=== PATIENT | male | born 1975 | race American Indian/Alaskan Native ===

== ENCOUNTER 2018-01-10 07:33 | Emergency (ER) | payer SELFPAY ==
--- NOTE | 2018-01-10 08:59 | XRay Report ---
FINAL REPORT EXAM: XR SHOULDER 2+V LT HISTORY: pain, decreased ROM TECHNIQUE: Three views of the left shoulder PRIORS: None. FINDINGS: There is no evidence of acute fracture. There is no evidence of joint dislocation. There is no significant focal osseous lesions seen. IMPRESSION: There is no acute abnormality identified.
--- NOTE | 2018-01-10 09:42 | Emergency Department Report ---
ED Upper Extremity Inj HPI - General Chief Complaint: Shoulder Injury Stated Complaint: PAIN LT ARM/SHOULDER Time Seen by Provider: 01/10/18 09:07 Source: patient Mode of arrival: Ambulatory Limitations: No Limitations - History of Present Illness Complaint: Injury to:: left -: Sudden, days(s) (8) Other Extremity Injury: Shoulder: Left Other Injuries: none Handedness: right Place: home (may have occurred at work or at home is unsure whether the initial injury that took place has been experiencing sharp burning shoulder pain with various range of motion since he lifted a heavy object at work AND started that working out at home) - Related Data Previous Rx's Medication Instructions Recorded Last Taken Type Ketorolac [Toradol] 10 mg PO Q6H PRN #14 tablet 01/10/18 Unknown Rx Methocarbamol [Robaxin-750] 750 mg PO TID #20 tablet 01/10/18 Unknown Rx Allergies Allergy/AdvReac Type Severity Reaction Status Date / Time No Known Allergies Allergy Unverified 01/10/18 07:47 ED Review of Systems ROS: Stated complaint: PAIN LT ARM/SHOULDER Other details as noted in HPI Constitutional: denies: chills, fever Eyes: denies: eye pain, eye discharge, vision change ENT: denies: ear pain, throat pain Respiratory: denies: cough, shortness of breath, wheezing Cardiovascular: denies: chest pain, palpitations Endocrine: no symptoms reported Gastrointestinal: denies: abdominal pain, nausea, diarrhea Genitourinary: denies: urgency, dysuria Musculoskeletal: denies: back pain, joint swelling, arthralgia Skin: denies: rash, lesions Neurological: denies: headache, weakness, paresthesias Psychiatric: denies: anxiety, depression Hematological/Lymphatic: denies: easy bleeding, easy bruising ED Past Medical Hx - Past Medical History Previous Medical History?: No - Surgical History Past Surgical History?: No - Social History Smoking Status: Current Some Day Smoker Substance Use Type: None - Medications Home Medications: Home Medications Medication Instructions Recorded Confirmed Last Taken Type Ketorolac [Toradol] 10 mg PO Q6H PRN #14 tablet 01/10/18 Unknown Rx Methocarbamol [Robaxin-750] 750 mg PO TID #20 tablet 01/10/18 Unknown Rx ED Physical Exam - General Limitations: No Limitations General appearance: alert, in no apparent distress - Head Head exam: Present: atraumatic, normocephalic - Eye Eye exam: Present: normal appearance - ENT ENT exam: Present: mucous membranes moist - Neck Neck exam: Present: normal inspection - Respiratory Respiratory exam: Present: normal lung sounds bilaterally. Absent: respiratory distress - Cardiovascular Cardiovascular Exam: Present: regular rate, normal rhythm. Absent: systolic murmur, diastolic murmur, rubs, gallop - GI/Abdominal GI/Abdominal exam: Present: soft, normal bowel sounds - Rectal Rectal exam: Present: deferred - Extremities Exam Extremities exam: Present: normal inspection, other (LEFT shoulder pain with Harrell test, Neer's test, O'Matthew TEST. 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 Absent: rash ED Course Vital Signs 01/10/18 07:44 Temperature 98.5 F Pulse Rate 80 Respiratory 16 Rate Blood Pressure 130/79 O2 Sat by Pulse 98 Oximetry Critical care attestation.: If time is entered above; I have spent that time in minutes in the direct care of this critically ill patient, excluding procedure time. ED Disposition Clinical Impression: Left shoulder pain Disposition: DC-01 TO HOME OR SELFCARE Is pt being admited?: No Does the pt Need Aspirin: No Condition: Stable Instructions: Rotator Cuff Injury (ED), Shoulder Sprain (ED) Prescriptions: Ketorolac [Toradol] 10 mg PO Q6H PRN #14 tablet PRN Reason: Pain Methocarbamol [Robaxin-750] 750 mg PO TID #20 tablet Referrals: PRIMARY CAREMD [Primary Care Provider] - 3-5 Days RANJEET RODRIGUEZ MD [Staff Physician] - 3-5 Days
[2018-01-10 10:35] VITALS: BP 129/73
== END 2018-01-10 10:35 | disposition home or self-care (01) ==
LOC: ED 07:33
DX: M25.512 Pain in left shoulder (principal); F17.200 Nicotine dependence, unspecified, uncomplicated